=== PATIENT | female | born 1930 | race Caucasian/White ===

== ENCOUNTER 2017-04-01 16:24 | Inpatient (IN) | payer MEDICARE, OTHER ==
--- NOTE | ~2017-04-01 | EGD ---
EGD REPORT [facility] [address] [place] [place] [address] NAME: GREER BARRETO : [birth year] STATUS : ADM IN PAT#: [id number] AGE: 86 ADM/REG DATE : 04/01/17 MR#: [id number] REPORT SERV DATE: 04/04/17 DICTATED BY: ARI GODINEZ DATE: 04/04/17 REPORT STATUS : Draft TRANSCRIBED BY: [employer] DATE: 04/04/17 [facility] Patient Name: Greer Barreto Date of : 1930 Attending MD: ARI GODINEZ, Procedure Date No Time: 04/04/2017 Procedure: Colonoscopy Indications: Anemia Medicines: Propofol per Anesthesia Complications: No immediate complications. Estimated blood loss: None. Procedure: Pre-Anesthesia Assessment: - ASA Grade Assessment: III - A patient with severe systemic disease. After I obtained informed consent, the scope was passed under direct vision. Throughout the procedure, the patient's blood pressure, pulse, and oxygen saturations were monitored continuously. The CF [id number] was introduced through the anus with the intention of advancing to the cecum. The scope was advanced to the sigmoid colon before the procedure was aborted. Medications were given. The colonoscopy was performed with difficulty due to restricted mobility of the colon and a tortuous colon. The patient tolerated the procedure well. The quality of the bowel preparation was good. The rectum was photographed. Findings: The perianal exam was abnormal. Findings include skin tags. The digital rectal exam was abnormal. Findings include decreased sphincter tone. Multiple small-mouthed diverticula were found in the sigmoid colon. Non-bleeding internal hemorrhoids were found during retroflexion and were Grade II (internal hemorrhoids that prolapse but reduce spontaneously). There is no endoscopic evidence of bleeding in the entire colon. Impression: - Perianal skin tags found on perianal exam. - Decreased sphincter tone found on digital rectal exam. - Diverticulosis in the sigmoid colon. - Non-bleeding internal hemorrhoids. Recommendation: - Perform an air contrast barium enema today. - [facility]. - High fiber diet. - Continue present medications. EGD REPORT [address] [place]. [address] NAME: GREER BARRETO : 32 STATUS : ADM IN [facility]#: [id number] AGE: 86 ADM/REG DATE : 04/01/17 MR#: [id number] REPORT SERV DATE: 04/04/17 DICTATED BY: ARI GODINEZ DATE: 04/04/17 REPORT STATUS : Draft TRANSCRIBED BY: DataParenting DATE: 04/04/17 Procedure Code(s): --- Professional --- 24043, 53, Colonoscopy, flexible, proximal to splenic flexure; diagnostic, with or without collection of specimen(s) by brushing or washing, with or without colon decompression (separate procedure) Diagnosis Code(s): --- Professional --- K64.4, Residual hemorrhoidal skin tags K62.89, Other specified diseases of anus and rectum K64.1, Second degree hemorrhoids K57.30, Diverticulosis of large intestine without perforation or abscess without bleeding D64.9, Anemia, unspecified CPT copyright 2013 [employer]. All rights reserved. The codes documented in this report are preliminary and upon blocker and polisher review may be revised to meet current compliance requirements. ARI GODINEZ, 04/04/2017 12:15 PM This report has been signed electronically. Number of Addenda: 0 Note Initiated On: 04/04/2017 11:17 AM Scope Withdrawal Time 0 hours 0 minutes 0 seconds
--- NOTE | ~2017-04-01 | CN ---
Consultation Report [place] [id number] [facility] [place] [address] NAME: FAY BARRETO : 32 STATUS : ADM IN PAT#: [id number] AGE: 86 ADM/REG DATE : 04/01/17 MR#: [id number] REPORT SERV DATE: 04/02/17 DICTATED BY: KAUSHAL BURKS DATE: 04/02/17 REPORT STATUS : Draft TRANSCRIBED BY: MODMarko DATE: 04/02/17 CONSULTATION NOTE DATE OF CONSULTATION: HISTORY OF PRESENT ILLNESS: This is an 86-year-old white female, whom I am seeing for Dr. Thao, admitted with complaints of shortness of breath. Hemoglobin of 5. She got 2 units of packed cells, hemoglobin is 7.3. Shortness of breath is much improved. No gross bleeding. She has had some mild upper abdominal discomfort. No GERD. No dysphagia. No change in bowel habits. Osteoarthritis. Has had knee surgery and back surgery. SOCIAL HISTORY: Positive for Goody's powder and Aleve. Negative for ETOH or nicotine. PAST MEDICAL HISTORY: Coronary artery disease, status post CABG, seizure, hypertension, diabetes mellitus, restless legs syndrome. Has been on Plavix, last dose yesterday. Status post cholecystectomy, hysterectomy, and appendectomy. FAMILY HISTORY: Negative for colon cancer. PHYSICAL EXAMINATION: VITAL SIGNS: Well-developed, well-nourished, white female, alert and oriented x3. HEENT: Anicteric. CHEST: Clear. HEART: Regular rate and rhythm without murmur or gallop. ABDOMEN: Soft, nontender. Bowel sounds active. EXTREMITIES: Grossly intact. NEUROLOGIC: Grossly intact. ASSESSMENT: 1. Anemia. Hemoglobin of 5, now 7.3 after 2 units, to receive a 3rd unit. 2. Minimal epigastric pain, history of Goody's powder and Aleve. 3. Coronary artery disease, status post coronary artery bypass graft, on Plavix, last dose yesterday. 4. Hypertension. 5. Diabetes mellitus. 6. Restless legs syndrome. 7. Osteoarthritis. 8. Seizure disorder. SUGGESTION: 1. Continue to hold Plavix, last dose on Monday. 2. Start clear liquids tomorrow, anticipating possible EGD and colonoscopy on Monday. We will follow with you. Consultation Report [place] [id number] [facility] [place]. [address] NAME: FAY BARRETO : 32 STATUS : ADM IN PAT#: [id number] AGE: 86 ADM/REG DATE : 04/01/17 MR#: [id number] REPORT SERV DATE: 04/02/17 DICTATED BY: KAUSHAL BURKS DATE: 04/02/17 REPORT STATUS : Draft TRANSCRIBED BY: RICARDO DATE: 04/02/17 Thank you very much for the consultation. DC/RICARDO Kaushal Burks M.D. / [id number] CC: Sruthi Oneil M.D. Camille Sommer, MD
--- NOTE | ~2017-04-01 | EGD ---
EGD REPORT [facility] [place] [address] [place] [place] [address] NAME: GREER BARRETO : 32 STATUS : ADM IN PAT#: [id number] AGE: 86 ADM/REG DATE : 04/01/17 MR#: [id number] REPORT SERV DATE: 04/04/17 DICTATED BY: ARI GODINEZ DATE: 04/04/17 REPORT STATUS : Draft TRANSCRIBED BY: [employer] DATE: 04/04/17 [facility] Patient Name: Greer Barreto Date of : 1930 Attending MD: ARI GODINEZ, Procedure Date No Time: 04/04/2017 Procedure: Upper GI endoscopy Indications: Anemia Medicines: Propofol per Anesthesia Complications: No immediate complications. Estimated blood loss: None. Procedure: Pre-Anesthesia Assessment: - ASA Grade Assessment: III - A patient with severe systemic disease. After obtaining informed consent, the endoscope was passed under direct vision. Throughout the procedure, the patient's blood pressure, pulse, and oxygen saturations were monitored continuously. The GIF [id number] was introduced through the mouth, and advanced to the second part of duodenum. The upper GI endoscopy was accomplished with ease. The patient tolerated the procedure well. Findings: The examined esophagus was normal. The Z-line was found 37 cm from the incisors. Diffuse moderate inflammation characterized by congestion (edema) and erythema was found in the gastric body and in the gastric antrum. No biopsies or other specimens were collected for this exam. Estimated blood loss: none. The duodenal bulb and 2nd part of the duodenum were normal. Estimated blood loss: none. Impression: - Normal esophagus. - Z-line 37 cm from the incisors. - Gastritis. No specimens collected. - Normal duodenal bulb and 2nd part of the duodenum. Recommendation: - [facility]. - Regular diet. - No aspirin, ibuprofen, naproxen, or other non-steroidal anti-inflammatory drugs. - Use Protonix (pantoprazole) 40 mg PO daily. - Perform an H. pylori stool antigen (HpSA) test. - Return to GI clinic in 4 weeks. EGD REPORT [facility] [place] [address] [place]. [address] NAME: GREER BARRETO : [birth year] STATUS : ADM IN [facility]#: [id number] AGE: 86 ADM/REG DATE : 04/01/17 MR#: [id number] REPORT SERV DATE: 04/04/17 DICTATED BY: ARI GODINEZ DATE: 04/04/17 REPORT STATUS : Draft TRANSCRIBED BY: DianDian DATE: 04/04/17 Procedure Code(s): --- Professional --- 88974, Esophagogastroduodenoscopy, flexible, transoral; diagnostic, including collection of specimen(s) by brushing or washing, when performed (separate procedure) Diagnosis Code(s): --- Professional --- K29.70, Gastritis, unspecified, without bleeding D64.9, Anemia, unspecified CPT copyright 2013 [employer]. All rights reserved. The codes documented in this report are preliminary and upon recreation therapy aide review may be revised to meet current compliance requirements. ARI GODINEZ, 04/04/2017 12:03 PM This report has been signed electronically. Number of Addenda: 0 Note Initiated On: 04/04/2017 11:16 AM Scope Withdrawal Time 0 hours 0 minutes 0 seconds [address] [place] [address]
--- NOTE | ~2017-04-01 | DS ---
Discharge Summary [facility] [address] [place]. [address] NAME: FAY BARRETO : 32 STATUS : DIS IN PAT#: [id number] AGE: 86 ADM/REG DATE : 04/01/17 MR#: [id number] REPORT SERV DATE: 04/07/17 DICTATED BY: WES AUGUSTIN DATE: 04/07/17 REPORT STATUS : Draft TRANSCRIBED BY: MODL DATE: 04/07/17 ADMISSION DATE: 04/01/2017 DISCHARGE DATE: 04/07/2017 DIAGNOSES ON ADMISSION: 1. Symptomatic anemia with low hemoglobin. 2. Possibly gastrointestinal source of symptomatic anemia for endoscopy while admitted. 3. History of use of Goody's Powders and ibuprofen. 4. Diabetes mellitus, controlled. 5. History of seizure disorder. No seizures for a long time. 6. Hypertension. 7. History of coronary artery disease, stable. 8. History of gastroesophageal reflux disease. DIAGNOSES ON DISCHARGE: 1. Severe anemia, present on admission, improved, status post two units of blood transfusion on admission. Stable hemoglobin and hematocrit. No shortness of breath. Asymptomatic. 2. Status post upper endoscopy done by Dr. Stephanie Thao, Gastroenterology, which showed gastritis. Avoid ibuprofen. Avoid Goody's Powder and nonsteroidal anti-inflammatory. Continue PPI. 3. Colonoscopy was started on 04/04/2017, but colonoscopy was aborted because of tortuous colon, only diverticulosis was noted but the patient did not have a full colonoscopy. Colonoscope was slightly advanced and then aborted because there was a risk of perforation because of tortuous colon. 4. Hypertension, controlled. 5. Coronary artery disease, stable. 6. Newly found sigmoid strictures on the barium enema, evaluated by Dr. Chun Coon. Sigmoid diverticulosis with possible stricture. 7. A 1.7 cm indeterminate right adrenal nodule. To be followed up by Dr. Salas, outpatient. 8. Diabetes mellitus, controlled. 9. Hypertension, controlled. 10.No evidence of constipation. 11.History of coronary artery disease, asymptomatic. CONSULTANTS: 1. Production Coordinator, Dr. Stephanie Thao. 2. General Surgery, Dr. Chun Coon. 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 Multifocal pelvic cysts, both kidneys, left greater than right, stable from prior examination, diverticulosis on the sigmoid colon, no Discharge Summary [place] [address] [place] [address] NAME: FAY BARRETO : 32 STATUS : DIS IN PAT#: [id number] AGE: 86 ADM/REG DATE : 04/01/17 MR#: [id number] REPORT SERV DATE: 04/07/17 DICTATED BY: WES AUGUSTIN DATE: 04/07/17 REPORT STATUS : Draft TRANSCRIBED BY: RICARDO DATE: 04/07/17 acute diverticulitis pattern, small fat containing left inguinal hernia. HISTORY OF PRESENT ILLNESS: Briefly, this is a very pleasant 86-year-old female, who was admitted by my colleague, Dr. Smith for severe symptomatic anemia. Her hemoglobin on admission was 5.5. The patient had blood transfusion while inpatient and her hemoglobin improved and stayed stable during hospitalization. For example, on 04/04/2017 was 9, on 04/05/2017 was 8.7, on 04/06/2017 was 9.1. The patient did not have any shortness of breath. The patient underwent upper endoscopy which showed gastritis. Colonoscopy was started by Dr. Thao, but it was aborted because the colon was very tortuous and there was a risk of perforation so study was not continued. Dr. Thao ordered enema with barium on the colon which showed diverticulosis on the sigmoid colon with possible stricture. Because of the stricture, the patient was evaluated by general surgeon, Chun Coon, and the patient did not want to have any surgery and she said that she does not have any problems with bowel movements, so, Dr. Coon recommended the patient to be discharged and to follow up with him as needed as well as Dr. Thao recommended the patient to follow up in two weeks. We recommended to avoid nonsteroidal anti-inflammatories. We recommended to avoid Goody's Powders. I discussed personally with the patient's son about these and with the patient. She understands. Since the patient takes already Prevacid 30 mg, we recommended to take twice daily. Regarding adrenal nodule, the patient and her son was informed about it. It should be followed up by Dr. Elian Salas on an outpatient basis. The patient was doing very well. She did not have any shortness of breath. No chest pain. Her strength came back after blood transfusion. She needs to follow up with Dr. Salas next week to recheck hemoglobin again. Also, Hematology consultation could be considered as well. Her stool Hemoccult was negative. DISCHARGE MEDICATIONS: Norvasc 5 mg a day, carvedilol 12.5 p.o. b.i.d., Neurontin 200 p.o. b.i.d. and 300 at lunch, isosorbide mononitrate 30 mg daily, Mevacor 40 mg daily, Dilantin 400 mg daily, Mirapex 0.5 mg daily, Pristiq 50 mg daily, metformin 500 mg daily, Plavix 75 mg daily, Ativan 1 mg at bedtime, Zofran 4 mg q.4 h. p.r.n. The patient to stop naproxen. The patient to stop Goody's Powder. Zanaflex 4 mg three times daily p.r.n., Diovan with HCTZ 320/12.5 daily, Prevacid 30 mg b.i.d. The patient was discharged in stable condition. Everything was discussed with the patient's family with the above plan. The patient to follow up with Dr. Thao in two weeks. She has an appointment on 04/24/2017 at 1400. Follow up with Dr. Chun Coon on 05/05/2017 at 9:30. Follow up with Dr. Salas next week to check hemoglobin. I spent 45 minutes on this discharge. DICTATED BY: Sruthi Bailey/RICARDO Discharge Summary [address] [place]. [address] NAME: FAY BARRETO : 32 STATUS : DIS IN PAT#: [id number] AGE: 86 ADM/REG DATE : 04/01/17 MR#: [id number] REPORT SERV DATE: 04/07/17 DICTATED BY: WES AUGUSTIN DATE: 04/07/17 REPORT STATUS : Draft TRANSCRIBED BY: RICARDO DATE: 04/07/17 Wes Augustin M.D. / [id number] CC: Sruthi Bailey M.D. John Gwin Jr., M.D. Camille Sommer, MD
--- NOTE | ~2017-04-01 | HP ---
History And Physical [place] [id number] [facility] [address] NAME: FAY BARRETO : 32 STATUS : ADM IN PAT#: [id number] AGE: 86 ADM/REG DATE : 04/01/17 MR#: [id number] REPORT SERV DATE: 04/01/17 DICTATED BY: WES SINCLAIR DATE: 04/01/17 REPORT STATUS : Draft TRANSCRIBED BY: MODL DATE: 04/01/17 DATE OF ADMISSION: 04/01/2017 HISTORY OF PRESENT ILLNESS: Ms. Barreto is an 86-year-old female patient, who is coming in as a direct admit from Dr. Salas's office. I spoke with Dr. Salas today and the patient was seen in the office today for a two- to three-week history of dyspnea with minimal exertion, extreme fatigue, and some nausea. Dr. Salas did perform a quick hemoglobin and hematocrit on her and this showed that her hemoglobin was 5.4 and hematocrit 18 something, and patient was extremely pale also. Dr. Salas was concerned that she may be losing blood from her GI tract probably chronically and wanted her admitted for symptomatic anemia and for blood transfusion. I took the report from Dr. Salas and waited for the patient to get here. Patient arrived in the hospital around 5 p.m. and I examined the patient at her bedside in room 227. The patient is alert, awake, oriented, and is able to give her history herself. She is a pleasant 86-year-old and she denies any other symptoms other than extreme fatigue for the last two to three weeks and dyspnea with minimal exertion for the last two or three weeks also. The patient states that she does have a slight chest discomfort, but no definitive chest pain. She denies any palpitations. She does complain of some nausea, but no vomiting. Recent history also includes a history of strep throat several weeks ago for which she was treated with antibiotics and completed a course of antibiotics. In addition to that, the patient also states that before two or three weeks ago, she did have diarrhea, but this cleared up and for the last two or three weeks, she has not had any diarrhea and her stools are actually normal. She denies any blood in stool. She denies any black stools. She denies any vomiting. The patient denies any dysuria or hematuria. There was no visible blood loss. REVIEW OF SYSTEMS: Negative for headaches, blurry vision, trouble swallowing, any cough now. The patient also states that she is not vomiting. There is slight abdominal discomfort also in the epigastric area, but no significant abdominal pain. As mentioned above, the patient denies any dysuria, hematuria, or blood in stool. PAST MEDICAL HISTORY: Significant for hypertension; diabetes mellitus; coronary artery disease, status post coronary artery bypass graft; seizure disorder; restless legs syndrome; depression; also patient states that she has a heart murmur all her life. Patient had a colonoscopy more than 10 years ago, but other than that, she has not had any recent endoscopic procedures whatsoever. FAMILY HISTORY: Noncontributory at this time. SOCIAL HISTORY: The patient does not smoke or drink or do any illicit drugs. The patient's daughter lives with the patient and the patient does not live alone at this time. The patient is fairly independent of activities of daily living up until two weeks ago when she was extremely tired and became short of breath even with minimal exertion or even with activities of daily living according to the daughter. ALLERGIES: THE PATIENT HAS NO KNOWN DRUG ALLERGIES. History And Physical [address] [address] NAME: FAY BARRETO : 32 STATUS : ADM IN [facility]#: [id number] AGE: 86 ADM/REG DATE : 04/01/17 MR#: [id number] REPORT SERV DATE: 04/01/17 DICTATED BY: WES SINCLAIR DATE: 04/01/17 REPORT STATUS : Draft TRANSCRIBED BY: RICARDO DATE: 04/01/17 HOME MEDICATIONS: Include Dilantin 400 mg once a day, Diovan HCT 320/12.5 once a day, Lopressor 25 mg p.o. b.i.d., Prilosec 20 mg once a day, Lofibra 160 mg once a day, metformin 500 mg p.o. b.i.d., lovastatin 80 mg once at bedtime, Plavix 75 mg once at bedtime, isosorbide mononitrate 30 mg p.o. once a day, gabapentin 100 mg p.o. in the morning and 300 mg p.o. at bedtime. For some reason, the patient also has been on Flagyl, Levaquin, and other antibiotics within the last few weeks. Currently, I do not think she is on any antibiotics, but I do not have the updated medication list yet. PHYSICAL EXAMINATION: GENERAL: On examination, patient is alert, oriented. Skin and mucous membranes appear well hydrated, but lips appear pale. VITAL SIGNS: Show that her blood pressure is in the 140s by 80s, pulse is around 70 per minute. The patient is afebrile. O2 saturation is 99% on room air. HEENT: Pallor noted. There is no facial droop noted. NECK: There is no JVD or thyromegaly or lymphadenopathy. CARDIOVASCULAR: S1, S2 appreciated. Sinus rhythm. There is a systolic murmur noted. RESPIRATORY: Clear lungs. No rales or rhonchi noted. ABDOMEN: There is very minimal tenderness in the epigastric area. Other than that, no guarding or rigidity noted. No hepatosplenomegaly noted. Bowel sounds appreciated. No masses noted in the belly. EXTREMITIES: There is no pedal edema. Pedal pulses are well felt. NEUROLOGICAL: No deficits at this time. MUSCULOSKELETAL: The patient has had bilateral knee replacements and she also gives me history that she takes Goody powders and ibuprofen off and on for joint pains. PSYCHIATRIC: History of depression for which she takes Pristiq. There is also history of anxiety. LABORATORY DATA: Labs that I have on this patient is only lab work from Dr. Salas's office, which shows hemoglobin and hematocrit around 5.5 and 18, but other than that, I have no labs right now on this patient who is a direct admit. ASSESSMENT: 1. Symptomatic anemia-we will repeat hemoglobin and hematocrit and will go ahead and type, cross, and transfuse two units of PRBCs in this patient. 2. Likely source of symptomatic anemia is GI bleed as the patient has not had an endoscopy for a long time. Hence, we will go ahead and send off stool for Hemoccult and also get a GI consult to see if patient can get an endoscopy during this admission. We will also go ahead and hold her Plavix. 3. Another reason to suspect a GI source of bleed is that patient gives history of use of Goody powders and ibuprofen quite frequently for joint pains according to the son and daughter who are there with the patient at bedside. 4. Diagnoses are all stable and chronic and all these include the following. a. Diabetes mellitus. We will check a hemoglobin A1c and keep her on 1800 ADA diet unless scope is planned. b. Seizure disorder, controlled with antiseizure medications at this time. c. Hypertension, controlled with medications at this time. History And Physical [address] [place]. [address] NAME: FAY BARRETO : 32 STATUS : ADM IN PAT#: [id number] AGE: 86 ADM/REG DATE : 04/01/17 MR#: [id number] REPORT SERV DATE: 04/01/17 DICTATED BY: WES SINCLAIR DATE: 04/01/17 REPORT STATUS : Draft TRANSCRIBED BY: RICARDO DATE: 04/01/17 d. History of gastroesophageal reflux disease for which the patient takes a PPI on a regular basis. e. Dyslipidemia/hypertriglyceridemia for which patient takes both Lofibra and statin. f. Coronary artery disease, status post CABG, which is stable at this time, however, her EKG also does not show any acute changes or abnormalities, but we will still check a troponin I in this patient. We will also check a chest x-ray and an echocardiogram as she complains of shortness of breath. g. We will decide on whether to proceed with CT scan of the abdomen in the morning after I have more labs at hand. Would like to definitely check her creatinine before ordering a CT scan of the belly with contrast on this patient. For now, will resume all home medications that she takes except for Plavix. Will hold the Plavix given the history of symptomatic anemia. We will follow this patient and continue to keep her under Dr. Sinclair. RADHA/RICARDO Wes Sinclair M.D. / [id number] CC: Sruthi Oneil M.D.
[~2017-04-01 16:24] MED LIST: ACET500CAP PO; ALAVERT10 MG PO; ALEVE220 MG PO; ANTIBIOTIC PO; ASAB PO; ATV1 PO; AUG1000 PO; CALTRA600D PO; CLEAR EYE1 OPH; D100 PO; DIL2TAB PO; DIL4TAB PO; DIOVAN HC2 PO; FLAG500TAB PO; GLUCPH PO; GOODY'S HEADAC1 EACH PO; HALF81 PO; IMDUR30 PO; LEVAQUIN5T PO; LOFIBRA160 MG PO; LOP25 PO; LOP50 PO; MAG OXIDE250 MG PO; MAGNESIUM OXIDE PO; METHOC500B PO; MEVACOR40 MG PO; NEUR100 PO; NORCO1 TA1 PO; P10 PO; PLAVIX PO; PRILO PO; PRISTIQ50 MG PO; TEKTURNA HCT1 TA2 PO; ULTRAM50 PO; [UNRECOGNIZED DRUG - OTHER] PO
[2017-04-01 18:20] LABS: BASOPHILS 1.7 %; BASOPHILS ABSOLUTE 0.08 10/3/uL (0.0-0.16); EOSINOPHILS 3.5 %; EOSINOPHILS ABSOLUTE 0.16 10/3/uL (0.0-0.53); IMMATURE GRANULOCYTES 0.4 %; IMMATURE GRANULOCYTES ABSOLUTE 0.02 10/3/uL (0.0-0.11); LYMPHOCYTES 30.1 %; LYMPHOCYTES ABSOLUTE 1.39 10/3/uL (0.67-4.30); MEAN PLATELET VOLUME 7.9 fL (9.2-13.0); MONOCYTES 13.6 %; MONOCYTES ABSOLUTE 0.63 10/3/uL (0.21-1.20); NEUTROPHILS 50.7 %; NEUTROPHILS ABSOLUTE 2.34 10/3/uL (2.02-8.40); RED CELL COUNT 3.25 10/6/uL (4.0-5.6)
[2017-04-01 18:21] LABS: HEMATOCRIT 19.4 % (36.0-48.0); HEMOGLOBIN 5.5 g/dL (12.0-16.0); MANUAL DIFF NO %; MEAN CORPUS HGB CONC 28.4 g/dL (32.0-36.0); MEAN CORPUSCULAR HEMOGLOB 16.9 pg (26.0-34.0); MEAN CORPUSCULAR VOLUME 59.7 fL (80-100); PLATELET COUNT 554 10/3/uL (150-400); RBC DISTRIBUTION WIDTH 17.9 % (12.0-16.0); WHITE BLOOD CELLS 4.6 10/3/uL (4.5-10.5)
[2017-04-01 18:29] LABS: A/G RATIO 1.4 (0.7-1.9); ALBUMIN 4.1 G/DL (3.5-5.0); ALKALINE PHOSPHATASE 56 U/L (45-117); BUN (BLOOD UREA NITROGEN) 17 MG/DL (6-23); CALCIUM, SERUM 8.7 MG/DL (8.5-10.4); CHLORIDE, SERUM 93 MMOL/L (96-112); CHOL/HDL RATIO(NOT ORDER) 2.4 (0-5); CHOLESTEROL 137 MG/DL (< 200); CO2 (CARBON DIOXIDE) 27 MMOL/L (24-34); CREATININE 0.73 MG/DL (0.55-1.02); GFR AFRICAN AMERICAN 88 ML/MIN (>=60); GFR NON AFRICAN AMERICAN 76 ML/MIN (>=60); GLOBULIN 2.9 G/DL (2.5-4.1); GLUCOSE, SERUM 94 MG/DL (60-99); HDL CHOLESTEROL 58 MG/DL (> 49); LDL CHOLESTEROL 56 MG/DL (< 130); NON-HDL CHOLESTEROL 79 MG/DL (< 160); POTASSIUM, SERUM 4.7 MMOL/L (3.5-5.3); SGOT(AST) 12 U/L (5-40); SGPT(ALT) 15 U/L (5-65); SODIUM, SERUM 127 MMOL/L (135-148); TOTAL BILIRUBIN 0.3 MG/DL (0-1.2); TRIGLYCERIDE 118 MG/DL (< 150)
[2017-04-01 18:40] LABS: A/G RATIO 1.2 (0.7-1.9); ALBUMIN 3.9 G/DL (3.5-5.0); ALKALINE PHOSPHATASE 63 U/L (45-117); BUN (BLOOD UREA NITROGEN) 17 MG/DL (6-23); CALCIUM, SERUM 8.4 MG/DL (8.5-10.4); CHLORIDE, SERUM 94 MMOL/L (96-112); CO2 (CARBON DIOXIDE) 27 MMOL/L (24-34); CREATININE 0.74 MG/DL (0.55-1.02); FERRITIN 9 NG/ML (8-252); GFR AFRICAN AMERICAN 86 ML/MIN (>=60); GFR NON AFRICAN AMERICAN 74 ML/MIN (>=60); GLOBULIN 3.2 G/DL (2.5-4.1); GLUCOSE, SERUM 136 MG/DL (60-99); IRON BINDING CAPACITY 541 MCG/DL (225-410); IRON, SERUM 7 MCG/DL (35-150); POTASSIUM, SERUM 3.5 MMOL/L (3.5-5.3); SGOT(AST) 11 U/L (5-40); SGPT(ALT) 15 U/L (5-65); SODIUM, SERUM 127 MMOL/L (135-148); TOTAL BILIRUBIN 0.2 MG/DL (0-1.2); TOTAL PROTEIN 7.1 G/DL (6.0-8.5); TROPONIN I <0.02 NG/ML (<0.05)
[2017-04-01 18:41] LABS: ANISOCYTOSIS 1+ (5-10/OIF) (0-5/OIF); HYPOCHROMIA 3+ (>30/OIF) (0-2/OIF); MICROCYTES 4+ (>50/OIF) (0-5/OIF); PLATELET ESTIMATE SLT INC (ADEQUATE)
[2017-04-01 18:42] LABS: ELLIPTOCYTES 1+ (3-10/OIF) (0-2/OIF); TARGET CELLS OCC (1-2/OIF) (0-1/OIF); TEARDROP SHAPED RBCS FEW (3-10/OIF)
[2017-04-01] MEDS ORDERED: NORV5 PO (18:43)
[2017-04-01] MEDS ORDERED: PLAVIX PO (18:43)
[2017-04-01] MEDS ORDERED: COREG12 PO (18:43)
[2017-04-01] MEDS ORDERED: NEUR100 PO ×2 (18:44→18:45)
[2017-04-01] MEDS ORDERED: LOFIB160 PO (18:44)
[2017-04-01] MEDS ORDERED: IMDUR30 PO (18:45)
[2017-04-01] MEDS ORDERED: ATV1 PO (18:45)
[2017-04-01] MEDS ORDERED: D100 PO (18:46)
[2017-04-01] MEDS ORDERED: MEVACOR40 MG PO (18:46)
[2017-04-01] MEDS ORDERED: ZOFRAN4 PO (18:46)
[2017-04-01] MEDS ORDERED: FORTAMET500 MG PO (18:46)
[2017-04-01] MEDS ORDERED: MIRAPEX5 PO (18:47)
[2017-04-01] MEDS ORDERED: ALEVE220 MG PO (18:47)
[2017-04-01] MEDS ORDERED: PRISTIQ50 MG PO (18:47)
[2017-04-01] MEDS ORDERED: GOODY'S EX-STR1 EAC1 PO (18:48)
[2017-04-01] MEDS ORDERED: DIOVAN HC2 PO (18:48)
[2017-04-01] MEDS ORDERED: ZANAFLEX 4 MG TA4 MG PO (18:48)
[2017-04-01] MEDS ORDERED: PREV30 PO (18:49)
[2017-04-02 02:07] LABS: ASCORBIC ACID (UR NOT ORDER) NEG (NEG); BILIRUBIN, URINE NEGATIVE (NEG); KETONE, URINE NEGATIVE (NEG); LEUKOCYTE ESTERASE(NOT OR TRACE (NEG); WBC (NOT ORDERED) (RFLEX) 0 (0-5)
[2017-04-02 05:32] LABS: BASOPHILS 0.8 %; BASOPHILS ABSOLUTE 0.05 10/3/uL (0.0-0.16); EOSINOPHILS 2.7 %; EOSINOPHILS ABSOLUTE 0.18 10/3/uL (0.0-0.53); IMMATURE GRANULOCYTES 0.2 %; IMMATURE GRANULOCYTES ABSOLUTE 0.01 10/3/uL (0.0-0.11); LYMPHOCYTES 20.7 %; LYMPHOCYTES ABSOLUTE 1.36 10/3/uL (0.67-4.30); MEAN PLATELET VOLUME 7.8 fL (9.2-13.0); MONOCYTES ABSOLUTE 0.92 10/3/uL (0.21-1.20); NEUTROPHILS 61.6 %; NEUTROPHILS ABSOLUTE 4.04 10/3/uL (2.02-8.40); PLATELET COUNT 477 10/3/uL (150-400)
[2017-04-02 05:34] LABS: HEMATOCRIT 23.7 % (36.0-48.0); HEMOGLOBIN 7.3 g/dL (12.0-16.0); MANUAL DIFF NO %; MEAN CORPUS HGB CONC 30.8 g/dL (32.0-36.0); MEAN CORPUSCULAR HEMOGLOB 19.7 pg (26.0-34.0); MEAN CORPUSCULAR VOLUME 64.1 fL (80-100); RBC DISTRIBUTION WIDTH 21.6 % (12.0-16.0); WHITE BLOOD CELLS 6.6 10/3/uL (4.5-10.5)
[2017-04-02 05:47] LABS: BUN (BLOOD UREA NITROGEN) 19 MG/DL (6-23); CALCIUM, SERUM 8.8 MG/DL (8.5-10.4); CHLORIDE, SERUM 97 MMOL/L (96-112); CO2 (CARBON DIOXIDE) 27 MMOL/L (24-34); CREATININE 0.65 MG/DL (0.55-1.02); GFR AFRICAN AMERICAN 94 ML/MIN (>=60); GFR NON AFRICAN AMERICAN 82 ML/MIN (>=60); POTASSIUM, SERUM 3.6 MMOL/L (3.5-5.3); SODIUM, SERUM 132 MMOL/L (135-148)
[2017-04-02 05:51] LABS: GLUCOSE, SERUM 90 MG/DL (60-99)
[2017-04-02 06:07] LABS: ANISOCYTOSIS 1+ (5-10/OIF) (0-5/OIF); PLATELET ESTIMATE SLT INC (ADEQUATE)
[2017-04-02 06:08] LABS: ELLIPTOCYTES 1+ (3-10/OIF) (0-2/OIF); HYPOCHROMIA 3+ (>30/OIF) (0-2/OIF); MICROCYTES 4+ (>50/OIF) (0-5/OIF)
[2017-04-03 06:15] LABS: BASOPHILS 0.9 %; BASOPHILS ABSOLUTE 0.06 10/3/uL (0.0-0.16); EOSINOPHILS 3.8 %; EOSINOPHILS ABSOLUTE 0.26 10/3/uL (0.0-0.53); HEMOGLOBIN 8.7 g/dL (12.0-16.0); IMMATURE GRANULOCYTES 0.3 %; IMMATURE GRANULOCYTES ABSOLUTE 0.02 10/3/uL (0.0-0.11); LYMPHOCYTES 32.5 %; LYMPHOCYTES ABSOLUTE 2.25 10/3/uL (0.67-4.30); MEAN CORPUS HGB CONC 32.3 g/dL (32.0-36.0); MEAN CORPUSCULAR VOLUME 64.8 fL (80-100); MONOCYTES 14.9 %; MONOCYTES ABSOLUTE 1.03 10/3/uL (0.21-1.20); NEUTROPHILS 47.6 %; PLATELET COUNT 483 10/3/uL (150-400); RBC DISTRIBUTION WIDTH 22.6 % (12.0-16.0); RED CELL COUNT 4.15 10/6/uL (4.0-5.6); WHITE BLOOD CELLS 6.9 10/3/uL (4.5-10.5)
[2017-04-03 06:19] LABS: HEMATOCRIT 26.9 % (36.0-48.0); MANUAL DIFF NO %
[2017-04-03 06:28] LABS: BUN (BLOOD UREA NITROGEN) 21 MG/DL (6-23); CALCIUM, SERUM 8.5 MG/DL (8.5-10.4); CHLORIDE, SERUM 97 MMOL/L (96-112); CO2 (CARBON DIOXIDE) 28 MMOL/L (24-34); CREATININE 0.75 MG/DL (0.55-1.02); GFR AFRICAN AMERICAN 85 ML/MIN (>=60); GFR NON AFRICAN AMERICAN 73 ML/MIN (>=60); GLUCOSE, SERUM 84 MG/DL (60-99); POTASSIUM, SERUM 3.7 MMOL/L (3.5-5.3); SODIUM, SERUM 133 MMOL/L (135-148)
[2017-04-03 07:19] LABS: MICROCYTES 4+ (>50/OIF) (0-5/OIF); PLATELET ESTIMATE SLT INC (ADEQUATE)
[2017-04-03 09:44] LABS: T PROTEIN (ELECT)(NOT OR 6.5 G/DL (6.0-8.5)
[2017-04-03 10:13] LABS: A/G 1.72 RATIO (0.9-2.10); ALB RELATIVE % 63.3 % (60.0-89.0); ALBUMIN (ELECTRO) 4.11 GM/DL (3.2-5.5); ALPHA 1 (ELECTRO) 0.18 GM/DL (0.1-0.4); ALPHA 1 RELAT % (NOT ORD) 2.8 % (1.0-4.0); ALPHA 2 (ELECTRO) 0.75 GM/DL (0.5-1.10); ALPHA 2 RELAT % 11.6 % (4.5-26.0); BETA GLOBULIN (SPE) 0.75 GM/DL (0.60-1.30); BETA RELATIVE % 11.5 % (9.0-22.0); GAMMA RELAT % 10.8 % (6.0-22.0)
[2017-04-04 06:22] LABS: INTERNATIONAL NORMAL RATI 1.2 UNITS (-); PROTIME (NOT ORD) 15.3 SEC (12.0-14.5)
[2017-04-04 06:23] LABS: BASOPHILS 0.3 %; BASOPHILS ABSOLUTE 0.04 10/3/uL (0.0-0.16); EOSINOPHILS 0.8 %; EOSINOPHILS ABSOLUTE 0.13 10/3/uL (0.0-0.53); HEMATOCRIT 28.3 % (36.0-48.0); IMMATURE GRANULOCYTES 0.3 %; IMMATURE GRANULOCYTES ABSOLUTE 0.05 10/3/uL (0.0-0.11); LYMPHOCYTES 10.4 %; LYMPHOCYTES ABSOLUTE 1.59 10/3/uL (0.67-4.30); MANUAL DIFF NO %; MEAN CORPUS HGB CONC 31.8 g/dL (32.0-36.0); MEAN CORPUSCULAR HEMOGLOB 21.1 pg (26.0-34.0); MEAN CORPUSCULAR VOLUME 66.4 fL (80-100); MEAN PLATELET VOLUME 8.1 fL (9.2-13.0); MONOCYTES 9.2 %; MONOCYTES ABSOLUTE 1.41 10/3/uL (0.21-1.20); NEUTROPHILS ABSOLUTE 12.09 10/3/uL (2.02-8.40); PLATELET COUNT 516 10/3/uL (150-400); RBC DISTRIBUTION WIDTH 23.3 % (12.0-16.0); RED CELL COUNT 4.26 10/6/uL (4.0-5.6); WHITE BLOOD CELLS 15.3 10/3/uL (4.5-10.5)
[2017-04-04 06:31] LABS: CALCIUM, SERUM 9.2 MG/DL (8.5-10.4); CHLORIDE, SERUM 96 MMOL/L (96-112); CO2 (CARBON DIOXIDE) 26 MMOL/L (24-34); CREATININE 0.75 MG/DL (0.55-1.02); GFR AFRICAN AMERICAN 85 ML/MIN (>=60); GFR NON AFRICAN AMERICAN 73 ML/MIN (>=60); POTASSIUM, SERUM 3.4 MMOL/L (3.5-5.3); SODIUM, SERUM 131 MMOL/L (135-148)
[2017-04-04 06:35] LABS: BUN (BLOOD UREA NITROGEN) 16 MG/DL (6-23); GLUCOSE, SERUM 105 MG/DL (60-99)
[2017-04-04 06:49] LABS: HYPOCHROMIA 1+ (3-10/OIF) (0-2/OIF); PLATELET ESTIMATE SLT INC (ADEQUATE); TOXIC GRANULATION 1+
[2017-04-04 06:51] LABS: POIKILOCYTOSIS 1+ (5-10/OIF) (0-5/OIF); POLYCHROMASIA 1+ (2-5/OIF) (0-1/OIF); SCHISTOCYTES OCC (0-2/OIF)
[2017-04-04 11:25] LABS: ASCORBIC ACID (UR NOT ORDER) NEG (NEG); BILIRUBIN, URINE NEGATIVE (NEG); KETONE, URINE NEGATIVE (NEG); LEUKOCYTE ESTERASE(NOT OR NEG (NEG); WBC (NOT ORDERED) (RFLEX) 1 (0-5)
[2017-04-05 06:36] LABS: BASOPHILS 0.5 %; BASOPHILS ABSOLUTE 0.04 10/3/uL (0.0-0.16); EOSINOPHILS ABSOLUTE 0.15 10/3/uL (0.0-0.53); HEMATOCRIT 27.8 % (36.0-48.0); HEMOGLOBIN 8.7 g/dL (12.0-16.0); IMMATURE GRANULOCYTES 0.3 %; IMMATURE GRANULOCYTES ABSOLUTE 0.02 10/3/uL (0.0-0.11); LYMPHOCYTES 23.4 %; LYMPHOCYTES ABSOLUTE 1.78 10/3/uL (0.67-4.30); MEAN CORPUS HGB CONC 31.3 g/dL (32.0-36.0); MEAN CORPUSCULAR HEMOGLOB 21.1 pg (26.0-34.0); MEAN CORPUSCULAR VOLUME 67.5 fL (80-100); MEAN PLATELET VOLUME 7.9 fL (9.2-13.0); MONOCYTES 10.8 %; MONOCYTES ABSOLUTE 0.82 10/3/uL (0.21-1.20); PLATELET COUNT 510 10/3/uL (150-400); RBC DISTRIBUTION WIDTH 24.5 % (12.0-16.0); RED CELL COUNT 4.12 10/6/uL (4.0-5.6)
[2017-04-05 06:37] LABS: MANUAL DIFF NO %; WHITE BLOOD CELLS 7.6 10/3/uL (4.5-10.5)
[2017-04-05 06:46] LABS: BUN (BLOOD UREA NITROGEN) 14 MG/DL (6-23); CALCIUM, SERUM 9.2 MG/DL (8.5-10.4); CHLORIDE, SERUM 98 MMOL/L (96-112); CO2 (CARBON DIOXIDE) 25 MMOL/L (24-34); CREATININE 0.75 MG/DL (0.55-1.02); GFR AFRICAN AMERICAN 85 ML/MIN (>=60); GFR NON AFRICAN AMERICAN 73 ML/MIN (>=60); GLUCOSE, SERUM 93 MG/DL (60-99); SODIUM, SERUM 130 MMOL/L (135-148)
[2017-04-05 06:48] LABS: POTASSIUM, SERUM 4.1 MMOL/L (3.5-5.3)
[2017-04-05 07:02] LABS: OVALOCYTES 1+ (3-10/OIF) (0-2/OIF); PLATELET ESTIMATE SLT INC (ADEQUATE); RBC MORPHOLOGY ABN (NORMAL)
[2017-04-06 13:12] LABS: HEMATOCRIT 29.2 % (36.0-48.0); HEMOGLOBIN 9.1 g/dL (12.0-16.0)
[2017-06-09] MEDS ORDERED: CORT-DOME 1% CR15 GM TOP (22:57)
[2017-06-09] MEDS ORDERED: COREG12 PO (22:58)
[2017-06-09] MEDS ORDERED: LOFIB160 PO (22:58)
[2017-06-09] MEDS ORDERED: IMDUR30 PO (22:59)
[2017-06-09] MEDS ORDERED: PRISTIQ50 MG PO (22:59)
[2017-06-09] MEDS ORDERED: PREV30 PO (22:59)
[2017-06-09] MEDS ORDERED: FORTAMET500 MG PO (22:59)
[2017-06-09] MEDS ORDERED: MEVACOR40 MG PO (22:59)
[2017-06-09] MEDS ORDERED: NEUR300 PO (23:00)
[2017-06-09] MEDS ORDERED: NEUR100 PO (23:00)
[2017-06-09] MEDS ORDERED: ATV1 PO (23:01)
[2017-06-09] MEDS ORDERED: MIRAPEX5 PO (23:01)
[2017-06-09] MEDS ORDERED: DIOVAN HC2 PO (23:01)
[2017-06-09] MEDS ORDERED: PLAVIX PO (23:01)
[2017-06-09] MEDS ORDERED: D100 PO (23:01)
[2017-06-09] MEDS ORDERED: IRON TABLET PO (23:02)
[2017-06-09] MEDS ORDERED: ULTRAM50 PO (23:03)
[2017-06-09] MEDS ORDERED: NORV5 PO (23:04)
== END 2017-04-07 13:14 | disposition home or self-care (01) | DRG 812 ==
LOC: 2SO 16:24
PROVIDERS: Family Medicine; Hospitalist; Internal Medicine Gastroenterology
PROC: 0DJ08ZZ Inspection of Upper Intestinal Tract, Via Natural or Artificial Opening Endoscopic (ICD-10-PCS; principal; 2017-04-04 11:55)
DX: D64.9 Anemia, unspecified (principal); E11.9 Type 2 diabetes mellitus without complications; G40.909 Epilepsy, unspecified, not intractable, without status epilepticus; I10 Essential (primary) hypertension; K29.70 Gastritis, unspecified, without bleeding; K21.9 Gastro-esophageal reflux disease without esophagitis; E78.5 Hyperlipidemia, unspecified; I25.10 Atherosclerotic heart disease of native coronary artery without angina pectoris; G25.81 Restless legs syndrome; M19.90 Unspecified osteoarthritis, unspecified site; K64.4 Residual hemorrhoidal skin tags; K64.1 Second degree hemorrhoids; K57.30 Diverticulosis of large intestine without perforation or abscess without bleeding; N94.89 Other specified conditions associated with female genital organs and menstrual cycle; K40.90 Unilateral inguinal hernia, without obstruction or gangrene, not specified as recurrent; Z95.1 Presence of aortocoronary bypass graft; Z98.890 Other specified postprocedural states
CPT/HCPCS: 36415; 71010; 74176; 74178; 74270; 80048; 80053; 80061; 81001; 82272; 82728; 82962; 83036; 83540; 83550; 83735; 83880; 84155; 84165; 84443; 84481; 84484; 85014; 85018; 85025; 85610; 86850; 86900; 86901; 86920; 93005; 93306; A9270-GY; J0360; J1170; J1940; P9016